=== PATIENT | female | born 1970 | race Asian ===

== ENCOUNTER 2024-06-05 13:08 | Emergency (ER) | payer OTHER ==
[~2024-06-05] VITALS: Ht 162.6 cm; Wt 56.7 kg
[2024-06-05 13:24] VITALS: BP 154/98; TEMP 98.5
[2024-06-05] MEDS ORDERED: NITR100C6 PO (13:44)
[2024-06-05] MEDS ORDERED: PHEN-895 PO (13:44)
[2024-06-05 14:29] LABS: APPEARANCE,URINE CLEAR (CLEAR); BILIRUBIN,URINE NEGATIVE (NEGATIVE); BLOOD, URINE 3+ Ery/uL (NEGATIVE); COLOR,URINE YELLOW (YELLOW); KETONES,URINE NEGATIVE (NEGATIVE); LEUKOCYTE ESTERASE ,URINE TRACE (NEGATIVE); NITRITE, URINE NEGATIVE (NEGATIVE); PH,URINE 5.5 (5.0-8.0); PROTEIN,URINE NEGATIVE (NEGATIVE); UGLUCOSE NEGATIVE (NEGATIVE); UROBILINOGEN,URINE 0.2 EU/dL (0.2)
[2024-06-05 14:30] VITALS: O2SAT 99
[2024-06-05 14:39] LABS: RBC,URINE TOO NUMEROUS TO COUN /HPF (0-2)
[2024-06-05 14:40] LABS: ADD URINE CULTURE YES; BACTERIA,URINE Rare /HPF (None Seen); SQUAMOUS EPITHELIAL CELL,UR None Seen /HPF (None Seen)
== END 2024-06-05 14:30 | disposition home or self-care (01) ==
LOC: ER 13:12
DX: N39.0 Urinary tract infection, site not specified (principal); R31.9 Hematuria, unspecified; I10 Essential (primary) hypertension
CPT/HCPCS: 81001; 87086-TC